=== PATIENT | female | born 1995 | race Caucasian/White ===

== ENCOUNTER 2018-07-29 22:40 | Emergency (ER) | payer MEDICAID ==
[~2018-07-29] VITALS: Ht 149.9 cm; Wt 62.1 kg
[2018-07-29 22:43] VITALS: BP 114/69; PULSE 70; RESP 18; Ht 149.9 cm; Wt 62.1 kg
[2018-07-30] MEDS ORDERED: AMOX1TAB10 PO (01:37)
[2018-07-30] MEDS ORDERED: CETI10CA PO (01:37)
[2018-07-30] MEDS ORDERED: FLUT9.9S NASAL (01:37)
--- NOTE | 2018-07-30 01:55 | ERD ---
ER Documentation Chief Complaint Chief Complaint bilateral earache x 2 days. also c/o sore throat, cough HPI 22-year-old female patient with no significant past medical history presents ED complaining of nasal congestion, headache, bilateral ear pain that started 2 days ago. Reports that she is still able to swallow liquids and solids without any difficulty. Patient also reports that she has a sore throat and a dry cough. Reports that her boyfriend was sick, last week. Denies any wheezing, shortness of breath, abdominal pain, fever, chills, nausea, vomiting, diarrhea. ROS All systems reviewed and are negative except as per history of present illness. Medications Home Meds Active Scripts Cetirizine Hcl* (Zyrtec*) 10 Mg Capsule, 10 MG PO DAILY, #10 TAB.CHEW Prov:LISA ESTRADA PA-C 07/30/18 Fluticasone Propionate (Flonase Allergy Relief) 9.9 Ml [place]onan.susp, 1 SPRAY NASAL BID, #1 BOTTLE TO EACH NOSTRIL Prov:LISA ESTRADA PA-C 07/30/18 Amoxicillin/Potassium Clav (Amox-Clav 875-125 mg Tablet) 875-125 mg Tab, 1 TAB PO BID for 7 Days, #14 TAB Prov:LISA ESTRADA PA-C 07/30/18 Allergies Allergies: Coded Allergies: No Known Drug Allergies (Verified Allergy, Unknown, 07/29/18) PMhx/Soc Medical and Surgical Hx: pt denies Medical Hx, pt denies Surgical Hx Hx Alcohol Use: No Hx Substance Use: Yes (marijuana) Hx Tobacco Use: No FmHx Family History: No diabetes, No coronary disease Physical Exam Vitals Vital Signs Date Temp Pulse Resp B/P (MAP) Pulse Ox O2 O2 Flow FiO2 Time Delivery Rate 07/29/18 97.9 70 18 114/69 98 22:43 (84) Physical Exam Const: [id number], well-nourished. In no acute distress. Head: Atraumatic, normocephalic. Tenderness palpation of the bilateral maxillary sinuses. Eyes: Normal Conjunctiva without injection. No purulent discharge. PERRL. EOMI ENT: Normal external ear. Ear canal without erythema. Left TM with serous fluid noted behind, normal right TM with pearly driscoll appearance. No tenderness palpation of the bilateral mastoid or tragus. Nasal canal clear with normal turbinates. Moist oropharynx without tonsillar exudates. Non-erythematous pharynx. Uvula midline. No drooling. No trismus. Neck: Full range of motion. No meningismus. No cervical lymphadenopathy. Resp: Clear to auscultation bilaterally. No wheezing, rhonchi, rales, or crackles. No accessory muscle use. No retractions. Cardio: Regular rate and rhythm. No murmurs, rubs or gallops. Abd: Soft, non tender, non distended. Normal bowel sounds. No palpable masses. No rebound tenderness. No guarding. Skin: No petechiae or rashes Back: No midline tenderness. No CVA tenderness. Ext: No cyanosis, or edema. Neur: Awake and alert. Psych: Normal Mood and Affect Procedures/MDM 22-year-old female patient with no significant past medical history presents to the ED complaining of facial pain as well as bilateral ear pain and congestion. Patient is afebrile and nontoxic-appearing. Patient symptoms are likely secondary to eustachian tube dysfunction as well as sinusitis. Patient's physical exam include lungs which were clear to auscultation and a normal pulse oximetry. There is a low suspicion for pneumonia, pneumothorax, mononucleosis, pulmonary embolism, epiglottitis, otitis media, otitis externa, viral/strep pharyngitis, sinusitis, myocarditis, pericarditis, endocarditis, peritonsillar abscess, mastoiditis, retropharyngeal abscess, meningitis, sepsis, acute abdomen or other emergent conditions. Fluids, rest, and symptomatic treatment are recommended for the management of patient's symptoms. Diagnosis: Eustachian tube dysfunction, sinusitis Discharge medications: Augmentin, Flonase, Zyrtec Patient was instructed to return to the ED for any new or worsening symptoms. They should otherwise follow up with the primary care provider within 2-3 days. The patient's questions were answered at the time of discharge. Patient understood and agreed with discharge management. Disclaimer: Inadvertent spelling and grammatical errors are likely due to EHR/dictation software use and do not reflect on the overall quality of patient care. Also, please note that the electronic time recorded on this note does not necessarily reflect the actual time of the patient encounter. Departure Diagnosis: Primary Impression: Eustachian tube dysfunction Laterality: bilateral Qualified Codes: H69.83 - Other specified disorders of eustachian tube, bilateral Additional Impression: Sinusitis Sinusitis location: unspecified location Chronicity: unspecified Qualified Codes: J32.9 - Chronic sinusitis, unspecified Condition: Stable Patient Instructions: Sinusitis, Abx Tx Referrals: [facility] YOU HAVE RECEIVED A MEDICAL SCREENING EXAM AND THE RESULTS INDICATE THAT YOU DO NOT HAVE A CONDITION THAT REQUIRES URGENT TREATMENT IN THE EMERGENCY DEPARTMENT. FURTHER EVALUATION AND TREATMENT OF YOUR CONDITION CAN WAIT UNTIL YOU ARE SEEN IN YOUR DOCTORS OFFICE WITHIN THE NEXT 1-2 DAYS. IT IS YOUR RESPONSIBILITY TO MAKE AN APPOINTMENT FOR FOLOW-UP CARE. IF YOU HAVE A PRIMARY DOCTOR --you should call your primary doctor and schedule an appointment IF YOU DO NOT HAVE A PRIMARY DOCTOR YOU CAN CALL OUR PHYSICIAN REFERRAL HOTLINE AT IF YOU CAN NOT AFFORD TO SEE A PHYSICIAN YOU CAN CHOSE FROM THE FOLLOWING [facility] [place] [address] [facility] [address] [facility] [facility] [address] [facility] [address] [facility] [address] [facility]. [facility]. [address] [facility]. [facility] YOU HAVE RECEIVED A MEDICAL SCREENING EXAM AND THE RESULTS INDICATE THAT YOU DO NOT HAVE A CONDITION THAT REQUIRES URGENT TREATMENT IN THE EMERGENCY DEPARTMENT. FURTHER EVALUATION AND TREATMENT OF YOUR CONDITION CAN WAIT UNTIL YOU ARE SEEN IN YOUR DOCTORS OFFICE WITHIN THE NEXT 1-2 DAYS. IT IS YOUR RESPONSIBILITY TO MAKE AN APPOINTMENT FOR FOLOW-UP CARE. IF YOU HAVE A PRIMARY DOCTOR --you should call your primary doctor and schedule and appointment IF YOU DO NOT HAVE A PRIMARY DOCTOR YOU CAN CALL OUR PHYSICIAN REFERRAL HOTLINE AT . IF YOU CAN NOT AFFORD TO SEE A PHYSICIAN YOU CAN CHOSE FROM THE FOLLOWING [facility] INSTITUT[facility]: [facility] [address] [place] [address] [facility] [address] [place] [address] [facility] [address] [place] [address] [facility] Additional Instructions: Call your primary care doctor TOMORROW for an appointment during the next 2-3 days.See the doctor sooner or return here if your condition worsens before your appointment time. LISA ESTRADA PA-C Jul 30, 2018 01:55
== END 2018-07-30 01:50 | disposition home or self-care (01) ==
LOC: FTE 22:40
DX: H69.83 Other specified disorders of Eustachian tube, bilateral (principal); J32.9 Chronic sinusitis, unspecified
CPT/HCPCS: 99283